=== PATIENT | female | born 1980 | race Caucasian/White ===

== ENCOUNTER 2024-01-20 16:55 | Emergency (ER) | payer OTHER ==
[~2024-01-20] VITALS: Ht 165.1 cm; Wt 57.6 kg
[2024-01-20 17:19] VITALS: BP 131/64; PULSE 90; RESP 16; TEMP 97.6; O2SAT 96
[2024-01-20] MEDS: NACL 0.9% 1,000 ML IV ONE (17:56)
[2024-01-20] MEDS: KETOROLAC 30 MG/ML VIAL IVP ONE (18:00)
[2024-01-20] MEDS: ONDANSETRON 4 MG/2 ML VIAL IVP ONE (18:00)
[2024-01-20 18:08] LABS: BASOPHILS # (AUTO) 0.1 K/uL (0.00-0.22); BASOPHILS % (AUTO) 1.2 % (0.0-2.0); EOSINOPHILS # (AUTO) 0.1 K/uL (0-0.4); EOSINOPHILS % (AUTO) 1.8 % (0.0-4.0); HEMATOCRIT 40.6 % (36-48); HEMOGLOBIN 13.7 g/dL (12.0-16.0); LYMPHOCYTES # (AUTO) 2.1 K/uL (2.5-16.5); LYMPHOCYTES % (AUTO) 30.3 % (20.5-51.1); MEAN CORPUSCULAR HEMOGLOBIN 32 pg (27-31); MEAN CORPUSCULAR HGB CONC 34 g/dL (33-37); MEAN CORPUSCULAR VOLUME 95.3 fL (80-94); MONOCYTES # (AUTO) 0.5 K/uL (0.8-1.0); MONOCYTES % (AUTO) 7.2 % (1.7-9.3); NEUTROPHILS # (AUTO) 4.1 K/uL (1.8-7.7); NEUTROPHILS % (AUTO) 59.5 % (42.2-75.2); PLATELET COUNT (AUTO) 454 K/uL (140-450); RED BLOOD CELL COUNT(AUTO) 4.26 MIL/uL (4.20-5.40); RED CELL DISTRIBUTION WIDTH 15.1 % (11.6-13.7); WHITE BLOOD COUNT (AUTO) 6.9 K/uL (4.8-10.8)
[2024-01-20 18:19] LABS: CALCIUM 8.3 mg/dL (8.5-10.1); CARBON DIOXIDE 23.7 mmol/L (21-32); CREATININE 0.7 mg/dL (0.6-1.3); POTASSIUM 3.7 mmol/L (3.5-5.1)
[2024-01-20] MEDS ORDERED: IBUP-2213 PO (18:35)
[2024-01-20] MEDS ORDERED: ONDA8TAB87 PO (18:35)
[2024-01-20] MEDS ORDERED: MEDR10TA PO (18:35)
[2024-01-20] MEDS ORDERED: ONDANSETRON 4 MG/2 ML VIAL ONE (18:45)
[2024-01-20] MEDS ORDERED: KETOROLAC 30 MG/ML VIAL ONE (18:45)
[2024-01-20 19:47] VITALS: BP 133/83; PULSE 79; RESP 16; O2SAT 98
== END 2024-01-20 19:47 | disposition home or self-care (01) ==
LOC: MED 16:55
DX: N93.8 Other specified abnormal uterine and vaginal bleeding (principal); R42 Dizziness and giddiness; F17.200 Nicotine dependence, unspecified, uncomplicated; Z98.890 Other specified postprocedural states; Z88.5 Allergy status to narcotic agent; Z91.040 Latex allergy status
CPT/HCPCS: 36415; 80048; 85025; 96361; 96374; 96375; 99284; J1885; J2405; J7030